=== PATIENT | male | born 1970 | race Caucasian/White ===

== ENCOUNTER 2017-01-13 19:42 | Inpatient (IN) | payer BC, OTHER ==
[~2017-01-13] VITALS: Ht 162.6 cm; Wt 74.8 kg
[2017-02-06] MEDS ORDERED: LOPERAMIDE HCL 2 MG CAPSULE PO PRN ×2 (18:45)
[2017-02-06] MEDS ORDERED: MAGNESIUM HYDROXIDE 30 ML LIQUID UDC PO PRN (18:45)
[2017-02-06] MEDS ORDERED: LORAZEPAM 2 MG/1 ML VIAL IM PRN (18:45)
[2017-02-06] MEDS ORDERED: LORAZEPAM 1 MG TABLET PO PRN ×2 (18:45)
[2017-02-06] MEDS ORDERED: DICYCLOMINE HCL 20 MG TABLET PO PRN (18:45)
[2017-02-06] MEDS ORDERED: MIRALAX 17 GM POWD.PACK PO PRN (18:45)
[2017-02-06] MEDS ORDERED: PROMETHAZINE HCL 25 MG/1 ML VIAL IM PRN (18:45)
[2017-02-06] MEDS ORDERED: CLONIDINE HCL 0.1 MG TABLET PO PRN (18:45)
[2017-02-06] MEDS ORDERED: ONDANSETRON ODT 4 MG TAB.RAPDIS SL PRN (18:45)
[2017-02-06] MEDS ORDERED: THIAMINE HCL 200 MG/2 ML VIAL IM ONE (18:45)
[2017-02-06] MEDS ORDERED: ACETAMINOPHEN 325 MG TABLET PO PRN (18:45)
[2017-02-06] MEDS ORDERED: MAG HYDROX/AL HYDROX/SIMETH 30 ML LIQUID UDC PO PRN (18:45)
[2017-02-06] MEDS ORDERED: diphenhydrAMINE 50 MG CAPSULE PO PRN (18:45)
[2017-02-06] MEDS ORDERED: LORA1TAB PO (19:59)
[2017-02-06 20:00] VITALS: BP 143/98
--- NOTE | 2017-02-06 20:00 | NUR ---
ADMISSION NOTE-- ADMITTING 46 Y/O MALE FOR ETOH DEPENDENCY.PT IS A/O X 4.PT IS 5 FEET AND 4 INCHES TALL AND WEIGHS 165 LBS.HE IS ON A REGULAR DIET,FULL CODE STATUS AND IS ALLERGIC TO ASPARAGUS,CAULIFLOWER,ALL NUTS,APPLES,ALL CITRUS FRUITS AND POTATOES.PT HAS A PMH OF ANXIETY,DEPRESSION,ANXIETY,PANIC ATTACKS,PTSD,SUICIDE ATTEMPT X 2 BY OVERDOSING ON MEDICATIONS AND ALCOHOL,ASTHMA,HYPERTENSION,HYPERCHOLESTEREMIA,COLITIS,DIVERTICULOSIS,HEPATITIS RELATED TO ALCOHOL CONSUMPTION,INSOMNIA,RENAL FAILURE X 5 AND PANCREATITIS X 5.SKIN IS INTACT,WARM AND DRY TO TOUCH.PT HAS SOME SUPERFICIAL ABRASIONS FROM SCRATCHING HIMSELF ON BILATERAL HANDS/WRISTS AND LEFT CHEEK.RESPIRATIONS ARE EVEN AND NON LABORED,ABDOMEN SOFT AND NON TENDER;B/S PRESENT X 4.NO C/O CONSTIPATION OR DIARRHEA NOTED.NO C/O N/V NOTED.PT DENIES ANY HX OF SEIZURES.PT IS EXTREMELY DEPRESSED DUE TO HIS DIVORCE WHICH HAS BEEN GOING ON FOR THE PAST 7 YEARS.PT DENIES ANY SI/HI/AH/VH AT THIS TIME.HIS CIWA SCORE IS 4 UPON ADMISSION.PT IS C/O GENERAL BODY ACHE,MILD TREMORS,NOT VISIBLE AND ANXIETY.PT IS A NON SMOKER.SMOKING CESSATION ENCOURAGED.PT RECEIVED FLU AND PNA VACCINATIONS IN 2015.PT ORIENTED TO ROOM AND UNIT.CARE PLAN AND SAFETY CHECKS INITIATED.DR MCPHERSON AND DR DISLA MADE AWARE.EDUCATION PROVIDED ON HEPATITIS C,FALL PREVENTION IN HOSPITALS,SEIZURE PRECAUTIONS AND SMOKING CESSATIONS.HX OF ALCOHOL USE FOLLOWS:-- CHOICE OF ALCOHOL - VODKA AMT. USED - ONE GALLON OR MORE ON A DAILY BASIS. LAST USED - THIS MORNING. PT HAS BEEN INTO SEVERAL DETOX AND REHAB PROGRAMS.LONGEST DETOX PERIOD WAS FOR 5 YEARS FROM 2003 TO 2008. [facility] IN 2015 FOR 3 DAYS. [facility] IN MAY 2014 FOR 30 DAYS. [facility] IN SEPTEMBER 2004 FOR 90 DAYS.
--- NOTE | 2017-02-06 20:00 | NUR ---
ADMISSION NOTE-- ADMITTING 46 Y/O MALE FOR ETOH DEPENDENCY.PT IS A/O X 4.PT IS 5 FEET AND 4 INCHES TALL AND WEIGHS 165 LBS.HE IS ON A REGULAR DIET,FULL CODE STATUS AND IS ALLERGIC TO ASPARAGUS,CAULIFLOWER,ALL NUTS,APPLES,ALL CITRUS FRUITS AND POTATOES.SKIN IS INTACT,WARM AND DRY TO TOUCH.PT HAS SOME SUPERFICIAL ABRASIONS FROM SCRATCHING HIMSELF ON BILATERAL HANDS/WRISTS AND LEFT CHEEK.RESPIRATIONS ARE EVEN AND NON LABORED Addendum: 02/07/17 at 0104 by TARAN CARRIZALES RN SAVED BY ERROR-NOT COMPLETE.
[2017-02-06 20:27] LABS: *AMPHETAMINE, URINE NEGATIVE (NEGATIVE); *BARBITURATE, URINE NEGATIVE (NEGATIVE); *CANNABINOID, URINE NEGATIVE (NEGATIVE); *COCCAINE, URINE NEGATIVE (NEGATIVE); *OPIATE, URINE NEGATIVE (NEGATIVE); *PHENCYCLIDINE SCREEN,URINE NEGATIVE (NEGATIVE)
[2017-02-06] MEDS ORDERED: MELA3TAB PO (20:36)
[2017-02-06] MEDS ORDERED: MAGN500C4 PO (20:36)
[2017-02-06] MEDS ORDERED: GLUC1CAP30 PO (20:36)
[2017-02-06] MEDS ORDERED: ALBU8.5H2 INH (20:36)
[2017-02-06] MEDS ORDERED: ASPI81TA31 PO (20:36)
[2017-02-06] MEDS ORDERED: SIMV40TA5 PO (20:36)
[2017-02-06] MEDS ORDERED: NORT25CA PO (20:36)
[2017-02-06] MEDS ORDERED: ONDA8TAB13 PO (20:36)
[2017-02-06] MEDS ORDERED: ALBU6.7H INH (20:36)
[2017-02-06] MEDS ORDERED: NAPR220T24 PO (20:36)
[2017-02-06] MEDS ORDERED: OXYM30SP3 NS (20:36)
[2017-02-06] MEDS ORDERED: FAMO40TA7 PO (20:36)
[2017-02-06] MEDS ORDERED: FOLI1TAB16 PO (20:36)
[2017-02-06] MEDS ORDERED: INOS500T PO (20:36)
[2017-02-06] MEDS ORDERED: MIRT30TA7 PO (20:36)
[2017-02-06] MEDS ORDERED: OMEP40CA37 PO (20:36)
[2017-02-06] MEDS ORDERED: CLON1PAT30 TD (20:36)
[2017-02-06] MEDS ORDERED: PERM60CR4 TP (20:36)
[2017-02-06] MEDS ORDERED: BECL8.7A6 INH (20:36)
[2017-02-06] MEDS ORDERED: VALS1TAB73 PO (20:36)
[2017-02-06] MEDS ORDERED: CARB100T5 PO (20:36)
[2017-02-06] MEDS ORDERED: TRAZ-147 PO (20:36)
[2017-02-06] MEDS ORDERED: PROM12.511 PO (20:36)
[2017-02-06] MEDS ORDERED: OMEG-11 PO (20:36)
[2017-02-06] MEDS ORDERED: CETI-231 PO (20:36)
[2017-02-06] MEDS ORDERED: SODI1TAB PO (20:36)
[2017-02-06] MEDS ORDERED: MOME17SP BNOSTRILS (20:36)
[2017-02-06] MEDS ORDERED: hydrocortisone 2.5% TP (20:36)
[2017-02-06] MEDS ORDERED: LMFO1TAB PO (20:36)
[2017-02-06] MEDS ORDERED: MOME13HF INH (20:36)
[2017-02-06] MEDS ORDERED: OMEG500C PO (20:36)
[2017-02-06] MEDS ORDERED: VITA150T PO (20:36)
[2017-02-06] MEDS ORDERED: [UNRECOGNIZED DRUG - OTHER] PO (20:36)
[2017-02-06] MEDS ORDERED: BIOT5000 PO (20:36)
[2017-02-06] MEDS ORDERED: FENO43CA5 PO (20:36)
[2017-02-06] MEDS ORDERED: BUPR300T52 PO (20:36)
[2017-02-06] MEDS ORDERED: PRAS50CA PO (20:36)
[2017-02-06] MEDS ORDERED: MONT10TA22 PO (20:36)
[2017-02-06] MEDS ORDERED: THIA100T70 PO (20:36)
[2017-02-06] MEDS ORDERED: EPIN0.3P3 IJ (20:36)
[2017-02-06] MEDS ORDERED: FLUT1BLS4 IH (20:36)
[2017-02-06] MEDS ORDERED: POTA2TAB18 PO (20:36)
[2017-02-06] MEDS ORDERED: CHLO25CA10 PO (20:36)
[2017-02-06] MEDS ORDERED: AID (20:44)
[2017-02-06] MEDS ORDERED: OLOP2.5D5 OP (20:44)
[2017-02-06] MEDS ORDERED: ASPI1TAB PO (20:44)
[2017-02-06] MEDS ORDERED: METHYL PROTECT (20:44)
[2017-02-06] MEDS ORDERED: FOLI-65 PO (20:50)
[2017-02-06] MEDS ORDERED: ASCO-382 PO (20:50)
[2017-02-06] MEDS ORDERED: GLUC1500 PO (20:50)
[2017-02-06] MEDS ORDERED: CHOL100030 PO (20:50)
[2017-02-06 21:02] LABS: BASOPHILS # (AUTO) 0.1 K/uL (0.0-0.2); BASOPHILS % (AUTO) 1.4 % (0.0-2.0); EOSINOPHILS # (AUTO) 0.2 K/uL (0.0-0.7); EOSINOPHILS % (AUTO) 4.2 % (0.0-7.0); HEMATOCRIT 43.3 % (40.0-50.0); HEMOGLOBIN 14.6 g/dL (14.0-18.0); LYMPHOCYTES # (AUTO) 1.6 K/uL (0.8-4.8); LYMPHOCYTES % (AUTO) 33.3 % (20.5-51.5); MEAN CORPUSCULAR HEMOGLOBIN 33.4 uug (27.0-31.0); MEAN CORPUSCULAR HGB CONC 34 g/dL (32.0-37.0); MEAN CORPUSCULAR VOLUME 99.4 fL (82.0-92.0); MONOCYTES # (AUTO) 0.3 K/uL (0.1-1.30); MONOCYTES % (AUTO) 6.7 % (0.0-11.0); NEUTROPHILS # (AUTO) 2.5 K/uL (1.8-8.9); NEUTROPHILS % (AUTO) 54.4 % (38.5-71.5); PLATELET COUNT (AUTO) 308 K/uL (150-450); RED BLOOD CELL COUNT(AUTO) 4.35 MIL/uL (4.70-6.10); RED CELL DISTRIBUTION WIDTH 16.1 % (11.5-14.5); WHITE BLOOD COUNT (AUTO) 4.7 K/uL (4.0-11.2)
[2017-02-06 21:20] LABS: ALBUMIN 4.5 g/dL (3.4-5.0); BILIRUBIN,TOTAL 0.5 mg/dL (0.2-1.0); CALCIUM 9.4 mg/dL (8.5-10.1); MAGNESIUM 2.2 mg/dL (1.8-2.4); TOTAL PROTEIN, SERUM 8.8 g/dL (6.4-8.2)
[2017-02-07] VITALS: BP 124/80
[2017-02-07 04:00] VITALS: BP 122/76
--- NOTE | 2017-02-07 06:47 | NUR ---
END OF SHIFT --- PT IS 46 Y/O MALE FOR ETOH DEPENDENCY.PT IS A/O X 4.HE IS ON A REGULAR DIET,FULL CODE STATUS AND IS ALLERGIC TO ASPARAGUS,CAULIFLOWER,ALL NUTS,APPLES,ALL CITRUS FRUITS AND POTATOES.NKDA.PT HAS A PMH OF ANXIETY,DEPRESSION,ANXIETY,PANIC ATTACKS,PTSD,SUICIDE ATTEMPT X 2 BY OVERDOSING ON MEDICATIONS AND ALCOHOL,ASTHMA,HYPERTENSION,HYPERCHOLESTEREMIA,COLITIS,DIVERTICULOSIS,HEPATITIS RELATED TO ALCOHOL CONSUMPTION,INSOMNIA,RENAL FAILURE X 5 AND PANCREATITIS X 5.SKIN IS INTACT,WARM AND DRY TO TOUCH.PT HAS SOME SUPERFICIAL ABRASIONS FROM SCRATCHING HIMSELF ON BILATERAL HANDS/WRISTS AND LEFT CHEEK.RESPIRATIONS ARE EVEN AND NON LABORED,ABDOMEN SOFT AND NON TENDER;B/S PRESENT X 4.NO C/O CONSTIPATION OR DIARRHEA NOTED.NO C/O N/V NOTED.PT DENIES ANY HX OF SEIZURES.PT DENIES ANY SI/HI/AH/VH AT THIS TIME.HIS CIWA SCORE IS 4 UPON ADMISSION.PLACED ON FALL AND SEIZURE PRECAUTIONS.ALL SAFETY MEASURES IN PLACE .UDS POSITIVE FOR BENZOS.ALCOHOL LEVEL ON ADMISSION WAS 398 / 0.40%.PT SLEPT ALL NIGHT WITHOUT ANY PROBLEM,SLEPT 8 HRS,FLUID INTAKE WAS 591 mls .URINE X 2 . WILL ENDORSE CARE TO DAY SHIFT.
--- NOTE | 2017-02-07 07:30 | NUR ---
Start of shift note; Received report from night nurse. Patient is a 46 y/o male admitted on 02/06/17 for ETOH dependence. Patient reported drinking Vodka 1gallon/day currently for 3 years, last drank 02/06/17. Patient is on fall and seizure precaution. Patient to start 5 day Ativan taper today. Patient reported PMH of depression, anxiety, PTSD, suicide attempt patient denies S/I at this time, asthma, HTN, hypercholesteremia, colitis, diverticulosis, hepatitis due to Alcohol consumption, Pancreatitis. Patient noted to be allergic to asparagus, nuts, cauliflower, apples, potatoes, all citrus fruits. Patient has old abrasion on arms, left cheek d/t scratching. All safety measures secured. Patient to be re-evaluated today during MD rounds. Will closely monitor patient.
[2017-02-07 08:00] VITALS: BP 127/90
[2017-02-07] MEDS: MULTIVITAMINS,THERAPEUTIC TABLET PO SCH (08:15)
[2017-02-07] MEDS: LORAZEPAM 1 MG TABLET PO SCH ×4 (08:15→21:35)
[2017-02-07] MEDS: FOLIC ACID 1 MG TABLET PO SCH (08:15)
[2017-02-07] MEDS: THIAMINE HCL 100 MG TABLET PO SCH (08:15)
--- NOTE | 2017-02-07 08:15 | NUR ---
PRN medication and taper order; Patient is complaining of nausea, no emesis noted, PRN Zofran given to prevent further nausea. 5 day Ativan started today, patient noted to be having tremors, anxiety, hot and cold flushes, bone and joint aches with current CIWA score is 12. Will closely monitor patient. Addendum: 02/07/17 at 1505 by BRITTNI RAMÍREZ LVN NO PCP reported.
[2017-02-07] MEDS ORDERED: 5 DAY TAPER OF LORAZEPAM -SERENITY PROTOCOL PO PRN (09:00)
[2017-02-07] MEDS ORDERED: TUBERCULIN,PURIF.PROT.DERIV. 5 TU/0.1 ML TEST ID ONE (09:00)
--- NOTE | 2017-02-07 09:15 | NUR ---
Re-assessment; ST[facility] [place] is effective, patient denies nausea at this time. Addendum: 02/07/17 at 0942 by BRITTNI RAMÍREZ LVN Patient's CIWA score remained 12. Will closely monitor patient. MD to evaluate patient during rounds.
[2017-02-07] MEDS ORDERED: LORAZEPAM 1 MG TABLET PO ONE (11:30)
--- NOTE | 2017-02-07 11:31 | NUR ---
New order; Patient's current CIWA score is 20, MD ordered Ativan 2mg ONE time now. Will closely monitor patient.
--- NOTE | 2017-02-07 11:55 | NUR ---
PRN medication; Patient reported 3 episodes of emesis, Phenergan 25 mg IM given on right deltoid. Will closely monitor patient.
[2017-02-07 12:00] VITALS: BP 130/88
[2017-02-07] MEDS: CETIRIZINE HCL 10 MG TABLET PO SCH (12:15)
[2017-02-07] MEDS ORDERED: PATIENT MAY USE OWN MED- MD OK INH SCH ×2 (12:15→17:00)
[2017-02-07] MEDS ORDERED: ASPIRIN/ACETAMINOPHEN/CAFFEINE TABLET PO PRN (12:15)
[2017-02-07] MEDS ORDERED: PATIENT MAY USE OWN MED- MD OK NS SCH ×2 (12:15→14:00)
--- NOTE | 2017-02-07 12:30 | NUR ---
Re-assessment; PRN medication is effective, no further emesis noted at this time, patient is still complaining of mild nausea. Patient's current CIWA at this time is 17, Ativan one time order is effective in reducing withdrawal symptoms. Will closely monitor patient.
--- NOTE | 2017-02-07 12:50 | NUR ---
IV insertion 22G IV inserted to R AC x 1 attempt. Pt tolerated well, IVF started IV protonix administered per MD order.
[2017-02-07] MEDS: PANTOPRAZOLE SODIUM 40 MG VIAL IV SCH (13:00)
[2017-02-07] MEDS: IV D5 1/2 NS 1000 ML 1,000 ML IV PRN ×2 (13:00→21:35)
--- NOTE | 2017-02-07 13:00 | NUR ---
New order; MD ordered Protonix 40mg IV and IV fluids D5% 1/2 NS 1000ml to run 120ml/hr. IV was inserted and started by charge nurse, IV site on Right AC with 22g. Will closely monitor patient.
[2017-02-07] MEDS: PATIENT MAY USE OWN MED- MD OK INH SCH ×2 (14:00→17:00)
[2017-02-07 16:00] VITALS: BP 130/94
[2017-02-07] MEDS: MIRTAZAPINE 15 MG TABLET PO SCH (17:14)
[2017-02-07] MEDS: MONTELUKAST SODIUM 10 MG TABLET PO SCH (17:14)
--- NOTE | 2017-02-07 17:15 | NUR ---
IV infiltration IV infiltrated. Dr Campbell notified. IV line removed. Pt has no complaints of pain/discomfort. Extremity elevated.
[2017-02-07] MEDS ORDERED: Medication Not On Formulary EA (Mirtazapine 1 TAB) PO SCH (18:00)
--- NOTE | 2017-02-07 18:00 | NUR ---
IV line insertion 22G IV line inserted in L AC x 4 attempts by two nurses. Pt tolerated well. No complaints at this time. Rapid blood return noted. IVF continued.
--- NOTE | 2017-02-07 18:32 | NUR ---
End of shift note; Patient is AOX4. Patient is a 46 y/o male admitted on 02/06/17 for ETOH dependence. Patient reported drinking Vodka 1gallon/day currently for 3 years, last drank 02/06/17. Patient is on fall and seizure precaution. Patient to start 5 day Ativan taper today. Patient reported PMH of depression, anxiety, PTSD, suicide attempt patient denies S/I at this time, asthma, HTN, hypercholesteremia, colitis, diverticulosis, hepatitis due to Alcohol consumption, Pancreatitis. Patient noted to be allergic to asparagus, nuts, cauliflower, apples, potatoes, all citrus fruits. Patient has old abrasion on arms, left cheek d/t scratching. Patient has IV fluids running at 120ml/HR, site is on left AC with good blood return. Right AC kept elevated, swelling slowly improving. patient denies pain at this time. Patient was able to eat his dinner 70%. Encouraged increase in fluid intake to prevent dehydration. Met all needs.
[2017-02-07 20:00] VITALS: BP 133/91
--- NOTE | 2017-02-07 20:00 | NUR ---
Start of Shift Patient is a 46 year-old, male, admitted for ETOH dependence. Pt reports drinking Vodka 1 gallon/day currently for 3 years. Pt started on a 5-day Ativan taper, 02/07/2017. Pt with PMHx of depression, anxiety, PTSD, suicide attempt patient denies S/I at this time, asthma, HTN, hypercholesteremia, colitis, diverticulosis, hepatitis due to Alcohol consumption, Pancreatitis. Patient noted to be allergic to asparagus, nuts, cauliflower, apples, bananas, potatoes, all citrus fruits. Pt on regular diet and is Full Code. Patient has old abrasion on arms, left cheek d/t scratching. WIth PRN topical Benadryl. Pt is AAOx4, no SOB nor anxiety noted.Pt is ambulatory with steady gait. Fall, universal, seizure and safety prec in place. Call light within reach. Kept pt warm, dry and comfortable. All needs met. Latest CIWA=11. Will continue to monitor pt.
[2017-02-07] MEDS: NORTRIPTYLINE HCL 25 MG CAPSULE PO SCH (21:35)
[2017-02-08] VITALS: BP 130/87
[2017-02-08 04:00] VITALS: BP 135/89
[2017-02-08] MEDS: IV D5 1/2 NS 1000 ML 1,000 ML IV PRN ×2 (05:47→15:50)
[2017-02-08] MEDS: IBUPROFEN 400 MG TABLET PO PRN ×2 (05:52→17:23)
--- NOTE | 2017-02-08 05:53 | NUR ---
RN note Motrin Pt c/o back ache=01/27. Administered Motrin 400 mg PO. No SOB noted. Will monitor and reassess.
--- NOTE | 2017-02-08 06:53 | NUR ---
RN note reassess PT verbalized relief from back pain, with pain level=1/10. No SOB noted. Will continue to monitor pt.
--- NOTE | 2017-02-08 07:10 | NUR ---
End of Shift Patient is a 46 year-old, male, admitted for ETOH dependence. Pt reports drinking Vodka 1 gallon/day currently for 3 years. Pt started on a 5-day Ativan taper, 02/07/2017. Pt with PMHx of depression, anxiety, PTSD, suicide attempt patient denies S/I at this time, asthma, HTN, hypercholesteremia, colitis, diverticulosis, hepatitis due to Alcohol consumption, Pancreatitis. Patient noted to be allergic to asparagus, nuts, cauliflower, apples, bananas, potatoes, all citrus fruits. Pt on regular diet and is Full Code. Patient has old abrasion on arms, left cheek d/t scratching. WIth PRN topical Benadryl. Pt is AAOx4, no SOB nor anxiety noted.Pt is ambulatory with steady gait. Fall, universal, seizure and safety prec in place. Call light within reach. Kept pt warm, dry and comfortable. All needs met. Latest CIWA=8, slept for 8 hours. Endorsed to AM shift nurse for continuity of care.
--- NOTE | 2017-02-08 07:34 | NUR ---
Start of shift note; Received report from night nurse. Patient is a 46 y/o male admitted on 02/06/17 for ETOH dependence. Patient reported drinking Vodka 1gallon/day currently for 3 years, last drank 02/06/17. Patient is on fall and seizure precaution. Patient to start 5 day Ativan taper today, no adverse reactions noted. Patient reported PMH of depression, anxiety, PTSD, suicide attempt patient denies S/I at this time, asthma, HTN, hypercholesteremia, colitis, diverticulosis, hepatitis due to Alcohol consumption, Pancreatitis. Patient noted to be allergic to asparagus, nuts, cauliflower, apples, potatoes, all citrus fruits. Patient has old abrasion on arms, left cheek d/t scratching with PRN skin treatment of hydrocortisone lotion. All safety measures secured. Patient has IV fluids running 120ml/hr on left AC for hydration. Patient slept for 8 hours. Will closely monitor patient.
[2017-02-08 07:59] LABS: BASOPHILS # (AUTO) 0.1 K/uL (0.0-0.2); BASOPHILS % (AUTO) 0.9 % (0.0-2.0); EOSINOPHILS # (AUTO) 0.2 K/uL (0.0-0.7); EOSINOPHILS % (AUTO) 3.3 % (0.0-7.0); HEMOGLOBIN 12.7 g/dL (14.0-18.0); LYMPHOCYTES % (AUTO) 14.8 % (20.5-51.5); MEAN CORPUSCULAR HEMOGLOBIN 33.1 uug (27.0-31.0); MEAN CORPUSCULAR HGB CONC 33 g/dL (32.0-37.0); MEAN CORPUSCULAR VOLUME 98.9 fL (82.0-92.0); MONOCYTES # (AUTO) 0.4 K/uL (0.1-1.30); MONOCYTES % (AUTO) 6.2 % (0.0-11.0); NEUTROPHILS % (AUTO) 74.8 % (38.5-71.5); PLATELET COUNT (AUTO) 218 K/uL (150-450); RED BLOOD CELL COUNT(AUTO) 3.85 MIL/uL (4.70-6.10); RED CELL DISTRIBUTION WIDTH 14.7 % (11.5-14.5); WHITE BLOOD COUNT (AUTO) 6.7 K/uL (4.0-11.2)
[2017-02-08 08:00] VITALS: BP 165/107
[2017-02-08] MEDS: CHOLECALCIFEROL 1,000 UNIT TABLET PO SCH (08:06)
[2017-02-08] MEDS: buPROPion XL 150 MG TAB.SR.24H PO SCH (08:06)
[2017-02-08] MEDS: FOLIC ACID 1 MG TABLET PO SCH (08:06)
[2017-02-08] MEDS: THIAMINE HCL 100 MG TABLET PO SCH (08:07)
[2017-02-08] MEDS: LORAZEPAM 1 MG TABLET PO SCH ×3 (08:07→21:00)
[2017-02-08] MEDS: ASPIRIN 81 MG TAB.CHEW PO SCH (08:07)
[2017-02-08] MEDS: HCTZ PO SCH (08:07)
[2017-02-08] MEDS: VALSARTAN PO SCH (08:07)
[2017-02-08] MEDS: MULTIVITAMINS,THERAPEUTIC TABLET PO SCH (08:07)
--- NOTE | 2017-02-08 08:07 | NUR ---
PRN medications; PRN Clonidine 0.1mg given for high BP 165/107, HR 83. Patient has history of HTN. PRN Hytone 2.5% also given for pruritus and applied to affected areas. Will closely monitor patient.
[2017-02-08] MEDS: PANTOPRAZOLE SODIUM 40 MG VIAL IV SCH (08:09)
[2017-02-08] MEDS: CETIRIZINE HCL 10 MG TABLET PO SCH (08:13)
[2017-02-08] MEDS: HYDROCORTISONE 2.5% LOTION 59 ML BOTTLE TP PRN (08:13)
[2017-02-08] MEDS: PATIENT MAY USE OWN MED- MD OK INH SCH ×3 (08:19→17:15)
[2017-02-08 08:23] LABS: THYROID STIMULATING HORMONE 1.799 mIU/mL (0.358-3.740)
[2017-02-08 08:38] LABS: ALBUMIN 3.5 g/dL (3.4-5.0); BILIRUBIN,DIRECT 0.2 mg/dL (0.0-0.2); CALCIUM 8.8 mg/dL (8.5-10.1); CREATININE 0.9 mg/dL (0.6-1.3); MAGNESIUM 1.6 mg/dL (1.8-2.4); PHOSPHOROUS 3.5 mg/dL (2.5-4.9); TOTAL PROTEIN, SERUM 7.1 g/dL (6.4-8.2)
[2017-02-08 08:40] LABS: POTASSIUM 2.8 mmol/L (3.5-5.1)
--- NOTE | 2017-02-08 09:07 | NUR ---
Re-assessment; Patient is AOX4. Clonidine PRN is effective, BP of 132/82 noted, HR of 82. PRN Hytone is effective per patient. Will closely monitor patient.
--- NOTE | 2017-02-08 09:50 | NUR ---
MD communication; MD notified regarding Potassium level 2.8 and Magnesium 1.6. MD ordered Kdur 40meq one time now and 20meq at 1500, mag-ox 800mg one time order. Order carried out and given. Will continue to monitor patient.
[2017-02-08] MEDS ORDERED: MAGNESIUM OXIDE 400 MG TABLET PO ONE (10:00)
[2017-02-08] MEDS ORDERED: POTASSIUM CHLORIDE 20 MEQ TAB.PRT.SR PO ONE ×2 (10:00→15:00)
[2017-02-08 12:42] VITALS: BP 169/112
--- NOTE | 2017-02-08 12:45 | NUR ---
MD communication Notified Dr Campbell that pt's BP is 169/112, HR of 75. MD to place orders as needed.
[2017-02-08] MEDS ORDERED: AMLODIPINE 5 MG TABLET PO SCH (13:00)
--- NOTE | 2017-02-08 13:06 | NUR ---
MD order; MD ordered Norvasc 5mg PO daily and Catapres 0.1mg TID PO for BP maintenance. MD was notified of patient's current BP 169/112, HR 77. Will closely to monitor patient. MD also increased IV D5% 1/2 NS rate to 125ml/hr. Orders carried out and given. IV site remained patent and intact and secured. No infiltration noted, no swelling/infiltration noted on previous IV site (Right AC). Will closely monitor patient.
--- NOTE | 2017-02-08 14:06 | NUR ---
Re-assessment; [facility] BP medication is effective, BP of 130/88 noted, will continue to monitor patient.
[2017-02-08] MEDS: CLONIDINE HCL 0.1 MG TABLET PO SCH ×2 (14:21→21:00)
[2017-02-08 15:35] LABS: HCV AB <0.1 s/co ratio (0.0-0.9); HEPATITIS B CORE AB, IgM Negative (Negative); HEPATITIS B SURFACE AG Negative (Negative)
[2017-02-08 16:00] VITALS: BP 148/96
[2017-02-08] MEDS: MIRTAZAPINE 15 MG TABLET PO SCH (17:15)
[2017-02-08] MEDS: MONTELUKAST SODIUM 10 MG TABLET PO SCH (17:15)
--- NOTE | 2017-02-08 17:23 | NUR ---
PRN medication; Patient is complaining of left shoulder pain rated 7/10, Ibuprofen 400mg given for pain. Will continue to monitor patient.
--- NOTE | 2017-02-08 18:17 | NUR ---
End of shift note; Patient is AOX4. Patient is a 46 y/o male admitted on 02/06/17 for ETOH dependence. Patient reported drinking Vodka 1gallon/day currently for 3 years, last drank 02/06/17. Patient is on fall and seizure precaution. Patient to start 5 day Ativan taper today. Patient reported PMH of depression, anxiety, PTSD, suicide attempt patient denies S/I at this time, asthma, HTN, hypercholesteremia, colitis, diverticulosis, hepatitis due to Alcohol consumption, Pancreatitis. Patient noted to be allergic to asparagus, nuts, cauliflower, apples, potatoes, all citrus fruits. Patient has old abrasion on arms, left cheek d/t scratching. Patient has IV fluids running at 125ml/HR, site is on left AC with good blood return, no infiltration noted. patient denies pain at this time. Encouraged increase in fluid intake to prevent dehydration. Patient remained compliant with treatment plan. Met all needs.
--- NOTE | 2017-02-08 18:23 | NUR ---
Re-assessment; Patient is calm and comfortable, resting with eyes closed, respirations even and unlabored. No S/S of pain at this time.
[2017-02-08 20:00] VITALS: BP 170/105
--- NOTE | 2017-02-08 20:00 | NUR ---
START OF SHIFT NOTE: REPORT RECEIVED FROM DAY SHIFT NURSE. PT IS A 46 YO MALE ADMITTED ON 02/06/17 FOR ETOH DEPENDENCE AND WITHDRAWAL. PT REPORTS DRINKING 1 GALLON VODKA DAILY FOR 3 YEARS. PT IS ON DAY 2 OF A 5-DAY ATIVAN TAPER. PT RECEIVED WITH LAST DAY SHIFT CIWA=17 PT IS A FULL CODE. PT HAS SCATTERED SUPERFICIAL ABRASIONS D/T SCRATCHING. VTE SCORE 1. PT IS ON A REGULAR DIET. PT REPORTS ALLERGY TO CITRUS, APPLE, ASPARAGUS, BANANA, CAULIFLOWER, NUTS, POTATO. PT REPORTS A PSYCH HX OF DEPRESSION, ANXIETY, PTSD, SUICIDE ATTEMPT X2. PT REPORTS PMHX OF ASTHMA, HTN, HYPERLIPIDEMIA, COLITIS, DIVERTICULOSIS, ALCOHOLIC HEPATITIS, RENAL FAILURE X5, PANCREATITIS X5. PT HAS 22G IN LEFT AC RUNNING D5 1/2NS AT 125MLS/HR. PT IS A&OX4 AND AMBULATORY WITH STEADY GAIT. BOWEL SOUNDS PRESENT IN ALL QUADRANTS. LUNGS CTA THROUGHOUT. VS AT START OF SHIFT ASSESSMENT: 98.0, 100, 16, 96%, 170/105. WITHDRAWAL SYMPTOMS NOTED/REPORTED: ANXIETY, DIAPHORESIS, INCREASED HR. CIWA IS 3. BED IS IN LOW POSITION AND LOCKED, SIDE RAILS UP X2, CALL LIGHT WITHIN REACH. ALL NEEDS ATTENDED AND MET. WILL CONTINUE TO MONITOR.
[2017-02-08] MEDS: NORTRIPTYLINE HCL 25 MG CAPSULE PO SCH (21:00)
[2017-02-08] MEDS ORDERED: AMLODIPINE 5 MG TABLET PO ONE (21:00)
[2017-02-08] MEDS: TRAZODONE 100 MG TABLET PO PRN (21:00)
[2017-02-08] MEDS: ALBUTEROL INHALER IH PRN (21:01)
[2017-02-08] MEDS: HYDROXYZINE PAMOATE 25 MG CAPSULE PO PRN (21:01)
--- NOTE | 2017-02-08 21:01 | NUR ---
PRN'S ALBUTEROL, TRAZODONE, VISTARIL: PT VERBALIZES SOB, REQUESTS ALBUTEROL INHALER. PT SELF-ADMINISTERED 1 PUFF ALBUTEROL ORDERED. PT C/O INABILITY TO SLEEP. ADMINISTERED PRN TRAZODONE ORDERED. PT C/O INCREASED ANXIETY. ADMINISTERED PRN VISTARIL ORDERED. WILL CONTINUE TO MONITOR.
--- NOTE | 2017-02-08 22:00 | NUR ---
REASSESSMENT: PT IS IN BED WITH EYES CLOSED. RESPIRATIONS ARE EVEN AND UNLABORED. NO S/S OF ACUTE DISTRESS NOTED. PRN'S ALBUTEROL, TRAZODONE, AND VISTARIL EFFECTIVE. WILL CONTINUE TO MONITOR.
--- NOTE | 2017-02-09 | NUR ---
VITALS/CIWA REFUSED: PT REFUSES VITALS AND CIWA ASSESSMENTS FOR SLEEP. PT EDUCATED ON RISKS/BENEFITS. ALL SAFETY PRECAUTIONS ARE IN PLACE. WILL CONTINUE TO MONITOR. Addendum: 02/09/17 at 0558 by BRENDAN LANGLEY RN Amended: Links added.
[2017-02-09] MEDS: IV D5 1/2 NS 1000 ML 1,000 ML IV PRN (01:11)
--- NOTE | 2017-02-09 04:00 | NUR ---
VITALS AND CIWA REFUSED: PT REFUSES 04:00 VITALS AND CIWA ASSESSMENTS FOR SLEEP. PT EDUCATED ON RISKS/BENEFITS. ALL SAFETY PRECAUTIONS ARE IN PLACE. WILL CONTINUE TO MONITOR. Addendum: 02/09/17 at 0558 by BRENDAN LANGLEY RN Amended: Links added.
--- NOTE | 2017-02-09 05:45 | NUR ---
PRN ALBUTEROL: PT REPORTS SOB. PT SELF-ADMINISTERED ALBUTEROL INHALER ORDERED. WILL CONTINUE TO MONITOR.
[2017-02-09] MEDS: ALBUTEROL INHALER IH PRN ×2 (05:49→21:28)
--- NOTE | 2017-02-09 06:45 | NUR ---
REASSESSMENT: PT IS IN BED WITH EYES CLOSED. RESPIRATIONS ARE EVEN AND UNLABORED. NO S/S OF ACUTE DISTRESS NOTED. PRN ALBUTEROL EFFECTIVE. WILL CONTINUE TO MONITOR.
--- NOTE | 2017-02-09 07:19 | NUR ---
END OF SHIFT NOTE: PT IS A 46 YO MALE ADMITTED TO [facility] ON 02/06/17 FOR MEDICALLY SUPERVISED WITHDRAWAL FROM ETOH. PT REPORTS DRINKING A GALLON OF VODKA DAILY FOR 3 YEARS. PT IS TO START DAY 3 OF A 5-DAY ATIVAN TAPER. PT IS A FULL CODE. PT HAS SCATTERED SUPERFICIAL ABRASIONS D/T SCRATCHING. VTE SCORE 1. PT IS ON A REGULAR DIET. PT REPORTS ALLERGY TO CITRUS, APPLE, ASPARAGUS, BANANA, CAULIFLOWER, NUTS, AND POTATO. PT REPORTS A PSYCH HX OF DEPRESSION, ANXIETY, PTSD, SUICIDE ATTEMPT X2. PT REPORTS PMHX OF ASTHMA, HTN, HYPERLIPIDEMIA, COLITIS, DIVERTICULOSIS, ALCOHOLIC HEPATITIS, RENAL FAILURE X5, PANCREATITIS X5. PT REMAINED A&OX4 DURING SHIFT WITH VSS; HR HIGH AT 100 AND BP AT 170/105. LAST CIWA=3 AT 20:00. SCHEDULED MEDICATION REGIME EFFECTIVELY MANAGED S/S OF WITHDRAWAL, IN ADDITION TO PRN VISTARIL FOR ANXIETY. PRN TRAZODONE WAS GIVEN FOR INSOMNIA, AND PRN VENTOLIN FOR SOB. PT HAS 22G IN LEFT AC RUNNING D5 1/2NS AT 125MLS/HR. TOTAL FLUID INTAKE THIS SHIFT: 1500 ML ORAL, 1000ML IV; TOTAL OUTPUT: URINE X 2, BM X 0. PT IS CURRENTLY IN BED AND SLEPT FOR 7 HOURS. BED IS IN LOW POSITION AND LOCKED, SIDE RAILS UP X2, CALL LIGHT WITHIN REACH. ALL NEEDS ATTENDED AND MET. PT ENDORSED TO DAY SHIFT NURSE.
[2017-02-09 07:52] LABS: CALCIUM 9.2 mg/dL (8.5-10.1); CREATININE 0.9 mg/dL (0.6-1.3)
[2017-02-09 08:00] VITALS: BP 132/96
--- NOTE | 2017-02-09 08:00 | NUR ---
Start of shift: Received pt a/o x4 laying in bed. Pt has LAC IV site with D51/2 NS @ 125/hr. IV site intact and patent with no discomfort noted. Pt presents with depressed mood and blunted affect. Pt denies S/I and H/I. Pt appears very disheveled and odorous. Encouraged patient to shower this AM. States he is eating fair and drinking fluids and tolerating well. Encouraged group attendance to improve coping skills and prevent relapse. Will medicate as ordered and continue to manage S/S of W/D.
[2017-02-09] MEDS ORDERED: AMLODIPINE 5 MG TABLET PO SCH (09:00)
[2017-02-09] MEDS: CETIRIZINE HCL 10 MG TABLET PO SCH (09:03)
[2017-02-09] MEDS: MULTIVITAMINS,THERAPEUTIC TABLET PO SCH (09:03)
[2017-02-09] MEDS: ASPIRIN 81 MG TAB.CHEW PO SCH (09:03)
[2017-02-09] MEDS: THIAMINE HCL 100 MG TABLET PO SCH (09:03)
[2017-02-09] MEDS: buPROPion XL 150 MG TAB.SR.24H PO SCH (09:03)
[2017-02-09] MEDS: LORAZEPAM 1 MG TABLET PO SCH ×4 (09:04→21:25)
[2017-02-09] MEDS: AMLODIPINE 10 MG TABLET PO SCH (09:04)
[2017-02-09] MEDS: CHOLECALCIFEROL 1,000 UNIT TABLET PO SCH (09:04)
[2017-02-09] MEDS: FOLIC ACID 1 MG TABLET PO SCH (09:04)
[2017-02-09] MEDS: CLONIDINE HCL 0.1 MG TABLET PO SCH ×3 (09:04→21:25)
[2017-02-09] MEDS: PANTOPRAZOLE SODIUM 40 MG VIAL IV SCH (09:05)
[2017-02-09] MEDS: PATIENT MAY USE OWN MED- MD OK INH SCH ×3 (09:06→17:10)
[2017-02-09] MEDS: HCTZ PO SCH (09:11)
[2017-02-09] MEDS: VALSARTAN PO SCH (09:11)
[2017-02-09] MEDS ORDERED: POTASSIUM CHLORIDE 20 MEQ TAB.PRT.SR PO ONE (10:00)
--- NOTE | 2017-02-09 10:52 | NUR ---
IV DISCONTINUED PER .
[2017-02-09 12:00] VITALS: BP 161/68
[2017-02-09 16:00] VITALS: BP 142/100
[2017-02-09] MEDS ORDERED: POTASSIUM CHLORIDE 10 MEQ CAPSULE.SA PO ONE (17:00)
[2017-02-09] MEDS: MONTELUKAST SODIUM 10 MG TABLET PO SCH (18:03)
[2017-02-09] MEDS: MIRTAZAPINE 15 MG TABLET PO SCH (18:04)
--- NOTE | 2017-02-09 18:21 | NUR ---
END OF SHIFT: PT CONTINUES ON ATIVAN TAPER. LAST CIWA 1. PT APPEARED DEPRESSED AND ANXIOUS THIS AM. PT PRESENTED THIS AM DISHEVELED AND DIAPHORETIC. PT STATES THE DAY PROGRESSED HE FELT BETTER. PT SHOWERED AND ATTENDED A GROUP BUT VERY LITTLE INTERACTION WITH PEERS AND ISOLATED IN ROOM MOST OF SHIFT. IV SITE AND FLUIDS DC'D. PT IS EATING WELL AND INCREASED FLUIDS ENCOURAGED. TOLERATING WELL. BP WAS LABILE. CLONIDINE SCHEDULED AND EFFECTIVE. NO PRNS REQUIRED. PT STATES DETOX MEDS ARE EFFECTIVE. SAFETY MEASURES IN PLACE. CALL MURRAY IN REACH. WILL PASS SHIFT REPORT TO ONCOMING NURSE.
[2017-02-09 20:00] VITALS: BP 126/88
--- NOTE | 2017-02-09 20:00 | NUR ---
START OF SHIFT NOTE: REPORT RECEIVED FROM DAY SHIFT NURSE. PT IS A 46 YO MALE ADMITTED ON 02/06/17 FOR ETOH WITHDRAWAL. PT REPORTS DRINKING ONE GALLON OF VODKA/DAY FOR 3 YEARS. PT IS ON DAY 3 OF A 5-DAY ATIVAN TAPER. PT RECEIVED WITH LAST DAY SHIFT CIWA=1. PT IS A FULL CODE. PT REPORTS ALLERGY TO CITRUS, APPLE, ASPARAGUS, BANANA, CAULIFLOWER, NUTS, AND POTATO. PT HAS SCATTERED SUPERFICIAL ABRASIONS D/T SCRATCHING. VTE SCORE 1. PT IS ON A REGULAR DIET. PT REPORTS A PSYCH HX OF DEPRESSION, ANXIETY, PTSD, SUICIDE ATTEMPT X2. PT REPORTS PMHX OF ASTHMA, HTN, HYPERLIPIDEMIA, COLITIS, DIVERTICULOSIS, ALCOHOLIC HEPATITIS, RENAL FAILURE X5, PANCREATITIS X5. PT IS A&OX4 AND AMBULATORY WITH STEADY GAIT. BOWEL SOUNDS PRESENT IN ALL QUADRANTS. LUNGS CTA THROUGHOUT WITH WHEEZES. VS AT START OF SHIFT ASSESSMENT: 98.3, 84, 16, 92%, 126/88. WITHDRAWAL SYMPTOMS NOTED/REPORTED: ANXIETY, DIAPHORESIS, AGITATION. CIWA IS 6. BED IS IN LOW POSITION AND LOCKED, SIDE RAILS UP X2, CALL LIGHT WITHIN REACH. ALL NEEDS ATTENDED AND MET. WILL CONTINUE TO MONITOR.
[2017-02-09] MEDS: TRAZODONE 100 MG TABLET PO PRN (21:25)
[2017-02-09] MEDS: HYDROXYZINE PAMOATE 25 MG CAPSULE PO PRN (21:26)
[2017-02-09] MEDS: NORTRIPTYLINE HCL 25 MG CAPSULE PO SCH (21:27)
--- NOTE | 2017-02-09 21:28 | NUR ---
PRN'S ALBUTEROL, VISTARIL, TRAZODONE PT REPORTS SOB. SPO2 AT 92%. PT SELF-ADMINISTERED 1 PUFF ALBUTEROL ORDERED. PT C/O INCREASED ANXIETY. ADMINISTERED PRN VISTARIL ORDERED. PT C/O INABILITY TO SLEEP. ADMINISTERED PRN TRAZODONE ORDERED. WILL CONTINUE TO MONITOR.
--- NOTE | 2017-02-09 22:00 | NUR ---
REASSESSMENT AND MD COMMUNICATION: SPO2 ON RA AFTER PRN ALBUTEROL REMAINS AT 91-92%. DR SCRUGGS CONTACTED AND MD INPUT ORDER FOR NEBULIZER/BREATHING TREATMENTS. RT CONTACTED FOR ADMINISTRATION.
[2017-02-09] MEDS ORDERED: ALBUTEROL SULFATE 2.5 MG/ 0.5 ML NEBU NEB PRN (22:15)
--- NOTE | 2017-02-09 22:30 | NUR ---
REASSESSMENT: SPO2 REMAINS AT 92% AFTER NEBULIZER/BREATHING TREATMENT. PT PLACED ON ORDERED O2 AT 2L VIA NASAL CANULA. SPO2 INCREASED TO 95% PT REPORTS THAT PRN VISTARIL AND PRN TRAZODONE HAVE RELIEVED ANXIETY AND PT STATES THAT HE THINKS HE WILL BE ABLE TO SLEEP. PRN'S VISTARIL AND TRAZODONE EFFECTIVE.
[2017-02-09] MEDS: IPRATROPIUM BROMIDE 0.5 MG/2.5 ML NEBU NEB PRN (22:31)
[2017-02-09] MEDS ORDERED: IPRATROPIUM BROMIDE 0.5 MG/2.5 ML NEBU ONE (22:38)
[2017-02-09] MEDS ORDERED: ALBUTEROL SULFATE 2.5 MG/3 ML NEBU ONE (22:38)
[2017-02-10] VITALS: BP 125/85
[2017-02-10 04:00] VITALS: BP 121/85
[2017-02-10] MEDS: HYDROCORTISONE 2.5% LOTION 59 ML BOTTLE TP PRN (04:12)
--- NOTE | 2017-02-10 04:12 | NUR ---
PRN HYTONE: PT REPORTS PRURITIS. PRN HYTONE APPLIED TO AFFECTED AREAS BY PT.
--- NOTE | 2017-02-10 05:14 | NUR ---
REASSESSMENT: PT IS IN BED WITH EYES CLOSED. RESPIRATIONS ARE EVEN AND UNLABORED. NO S/S OF ACUTE DISTRESS NOTED. PRN HYTONE EFFECTIVE. WILL CONTINUE TO MONITOR.
[2017-02-10] MEDS ORDERED: ALBUTEROL SULFATE 2.5 MG/3 ML NEBU NEB PRN (07:00)
--- NOTE | 2017-02-10 07:06 | NUR ---
END OF SHIFT NOTE: PT IS A 46 YO MALE ADMITTED ON 02/06/17 FOR MEDICALLY SUPERVISED WITHDRAWAL FROM ETOH. PT REPORTS DRINKING ONE GALLON OF VODKA DAILY FOR 3 YEARS. PT IS TO START DAY 4 OF A 5-DAY ATIVAN TAPER. PT IS A FULL CODE. PT IS ON A REGULAR DIET. PT REPORTS ALLERGY TO CITRUS, APPLE, ASPARAGUS, BANANA, CAULIFLOWER, NUTS, AND POTATO. PT HAS SCATTERED SUPERFICIAL ABRASIONS D/T SCRATCHING; PRN HYTONE ORDERED FOR PRURITIS. VTE SCORE 1. PT REPORTS A PSYCH HX OF DEPRESSION, ANXIETY, PTSD, SUICIDE ATTEMPT X2. PT REPORTS PMHX OF ASTHMA, HTN, HYPERLIPIDEMIA, COLITIS, DIVERTICULOSIS, ALCOHOLIC HEPATITIS, RENAL FAILURE X5, AND PANCREATITIS X5. PT REMAINED A&OX4 DURING SHIFT WITH VSS; SPO2 LOW AT 92% AND NEW ORDER FOR ATROVENT AND VENTOLIN NEBULIZER RECEIVED. SPO2 REMAINED AT 92% AFTER NEB TREATMENT AND PT PLACED ON ORDERED O2 AT 2L VIA NASAL CANULA. LAST CIWA=1 AT 04:00. SCHEDULED MEDICATION REGIME EFFECTIVELY MANAGED S/S OF WITHDRAWAL, IN ADDITION TO PRN VISTARIL FOR ANXIETY. PRN TRAZODONE WAS GIVEN FOR INSOMNIA, AND PRN VENTOLIN INH FOR SOB. PRN HYTONE ADMINISTERED FOR PRURITIS. TOTAL FLUID INTAKE THIS SHIFT: 855 ML; TOTAL OUTPUT: URINE X 2, BM X 0. PT IS CURRENTLY IN BED AND SLEPT FOR 5 HOURS. BED IS IN LOW POSITION AND LOCKED, SIDE RAILS UP X2, CALL LIGHT WITHIN REACH. ALL NEEDS ATTENDED AND MET. PT ENDORSED TO DAY SHIFT NURSE.
[2017-02-10] MEDS: PANTOPRAZOLE SODIUM 40 MG TABLET.DR PO SCH (07:23)
--- NOTE | 2017-02-10 07:53 | NUR ---
START OF SHIFT: RECEIVED PT LAYING IN BED THIS AM. PT STATES HE SLEPT SOME, BUT HAD A BAD NIGHT LAST NIGHT WITH C/O ABD PAIN, ARM PAIN, AND TROUBLE SLEEPING LAST NIGHT. PT ON 2 L O2 DURING THE NIGHT PER ASSEMBLY LINE WORKER NURSE. PT SLEPT 5 HOURS LAST NIGHT AFTER GIVEN TRAZODONE AND VISTARIL BY ASSEMBLY LINE WORKER NURSE. CIWA 4 THIS AM. WILL ENCOURAGE PT TO ATTEND GROUPS TO MANAGE COPING SKILLS AND PREVENT RELAPSE. WILL CONTINUE MONITORING S/S OF W/D AND PROVIDE SAFE AND SUPPORTIVE ENVIRONMENT WITH CALL MURRAY IN REACH AND BED IN LOWEST POSITION.
[2017-02-10 08:00] VITALS: BP 125/88
[2017-02-10] MEDS: THIAMINE HCL 100 MG TABLET PO SCH (08:52)
[2017-02-10] MEDS: CETIRIZINE HCL 10 MG TABLET PO SCH (08:52)
[2017-02-10] MEDS: CHOLECALCIFEROL 1,000 UNIT TABLET PO SCH (08:52)
[2017-02-10] MEDS: buPROPion XL 150 MG TAB.SR.24H PO SCH (08:52)
[2017-02-10] MEDS: AMLODIPINE 10 MG TABLET PO SCH (08:52)
[2017-02-10] MEDS: ASPIRIN 81 MG TAB.CHEW PO SCH (08:53)
[2017-02-10] MEDS: MULTIVITAMINS,THERAPEUTIC TABLET PO SCH (08:53)
[2017-02-10] MEDS: FOLIC ACID 1 MG TABLET PO SCH (08:53)
[2017-02-10] MEDS: CLONIDINE HCL 0.1 MG TABLET PO SCH ×3 (08:53→22:00)
[2017-02-10] MEDS: LORAZEPAM 1 MG TABLET PO SCH ×3 (08:53→22:00)
[2017-02-10] MEDS: PATIENT MAY USE OWN MED- MD OK INH SCH ×3 (08:56→17:41)
[2017-02-10] MEDS: VALSARTAN PO SCH (08:56)
[2017-02-10] MEDS: HCTZ PO SCH (08:56)
[2017-02-10 12:00] VITALS: BP 132/88
--- NOTE | 2017-02-10 12:43 | NUR ---
CIWA DEFERRED. PT SLEEPING RESPIRATIONS EVEN AND UNLABORED. BED LOCKED AND IN LOWEST POSITION. CALL MURRAY IN REACH
[2017-02-10 16:00] VITALS: BP 133/82
--- NOTE | 2017-02-10 17:37 | NUR ---
1500 MEDS HELD PT IS ASLEEP.RESP EVEN AND UNLABORED. SAFETY MEASURES IN PLACE
[2017-02-10] MEDS: MONTELUKAST SODIUM 10 MG TABLET PO SCH (18:24)
--- NOTE | 2017-02-10 18:54 | NUR ---
END OF SHIFT: PT CONTINUES ATIVAN TAPER. LAST CIWA 0. PT O2 SATS REMAINED STABLE AT 96-98% DURING THIS SHIFT WITH OUT USE OF O2. PT CONTINUES TO PRESENT WITHDRAWN AND REPORTS DEPRESSION.PT DENIES S/I AND H/I. PT C/O FATIGUE TODAY AND ISOLATED IN HIS ROOM SLEEPING. MEDS HELD AT 1500 DUE TO PT BEING ASLEEP. NO PRN MEDS GIVEN TODAY PT STATES DETOX MEDS ARE EFFECTIVE. PT REMAINS IN BED WITH BED IN LOWEST POSITION AND CALL MURRAY IN REACH. WILL PASS REPORT TO ONCOMING NURSE.
[2017-02-10 20:00] VITALS: BP 133/82
--- NOTE | 2017-02-10 20:00 | NUR ---
START OF SHIFT Received report from day shift nurse. Pt attended a group meeting and returned to his room after. He is a 46 yo male admitted to [facility] on 02/06 for ETOH dependence. He is A&O x4 and ambulatory. Allergies to citrus, apples, asparagus, banana, cauliflower, nuts and potato. He has a PMH of asthma, HTN, hypercholesteremia, colitis, diverticulosis, alcoholic hepatitis, renal failure x5, pancreatitis x5, depression, anxiety, and suicide attempt x2. Pt denies SI/HI. He started a 5 day Ativan taper on 02/07. Lung sounds are clear. He reports feeling anxious with tremors that can be felt. He has been compliant with treatment. Fall and seizure precautions in place. Bed is down with call light in reach.
[2017-02-10] MEDS ORDERED: MIRTAZAPINE 15 MG TABLET PO SCH (21:00)
[2017-02-10] MEDS: NORTRIPTYLINE HCL 25 MG CAPSULE PO SCH (22:00)
[2017-02-11] VITALS: BP 144/96
[2017-02-11] MEDS: TRAZODONE 100 MG TABLET PO PRN (00:40)
--- NOTE | 2017-02-11 00:42 | NUR ---
PRN Trazodone administration Pt reports he is unable to fall sleep. Encouraged relaxation. PRN Trazodone administered.
--- NOTE | 2017-02-11 02:00 | NUR ---
PRN Trazodone reassessment PRN Trazodone somewhat effective. Pt appears drowsy and reports that he has been sleeping "on and off" since receiving Trazodone.
[2017-02-11] MEDS: IPRATROPIUM BROMIDE 0.5 MG/2.5 ML NEBU NEB PRN ×2 (02:53→22:44)
[2017-02-11] MEDS: ALBUTEROL SULFATE 2.5 MG/3 ML NEBU NEB PRN ×2 (02:53→22:44)
--- NOTE | 2017-02-11 02:53 | NUR ---
PRN Milk of Magnesia Pt reports feeling constipated with stomach cramping. Pt describes two small bowel movements yesterday that were like "pellets". Bowel sounds present in all 4 quadrants. PRN Milk of Magnesia administered. Encouraged fluids.
--- NOTE | 2017-02-11 02:56 | NUR ---
PRN Breathing Treatment Pt c/o mild SOB. O2 sat 96% on Oxygen 2LPM via nasal cannula. Lung sounds clear. RT contacted for breathing treatment.
--- NOTE | 2017-02-11 07:20 | NUR ---
END OF SHIFT Report provided to day shift nurse. Pt is lying in bed resting. He is a 46 yo male admitted to [facility] on 02/06 for ETOH dependence. He is A&O x4 and ambulatory. Allergies to citrus, apples, asparagus, banana, cauliflower, nuts and potato. He has a PMH of asthma, HTN, hypercholesteremia, colitis, diverticulosis, alcoholic hepatitis, renal failure x5, pancreatitis x5, depression, anxiety, and suicide attempt x2. Pt denies SI/HI. He started a 5 day Ativan taper on 02/07. At 0000 pt was placed on Oxygen 2LPM via nasal cannula for O2 sat of 93% and it increased to 97%. Pt was drowsy but unable to sleep at this time. Breathing treatment administered for c/o mild SOB at 0253 and was effective. Pt reports that prior to 0400 he was only sleeping "for a few minutes on and off". At 0400 pt was observed to be sleeping with periods of apnea. No s/s of distress. O2 sat 92% on 2LPM via nasal cannula. Increased Oxygen to 3LPM and O2 sat increased to 96%. PRN Trazodone and Milk of Magnesia administered. Last CIWA was 2. He drank 1000mL and slept for 5 hours. Fall and seizure precautions in place. Bed is down with call light in reach.
--- NOTE | 2017-02-11 07:21 | NUR ---
Start of Shift Notes: Received patient in his room. Awake, alert and verbally responsive. Able to make his needs known. Respirations even and unlabored. No complains of SOB noted. Skin warm and dry to touch. Abdomen soft and non-distended. No complains of N/V/D or constipation noted. Bladder non-distended. No complains of dysuria. Ambulatory ad bethel with steady gait. Patient is a 46 year old male admitted for ETOH dependence who was placed on a 5-day Ativan taper as ordered. No adverse reactions noted. Patient is tolerating taper well. 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 FULL CODE. Regular diet. Allergic to asparagus, nuts, cauliflowers, potatoes, banana and citrus fruits. Educated patient with his current plan of care for the day and his medication regimen. Encouraged oral fluid intake and encouraged group participation to learn new skills to prevent relapse. Will continue to monitor closely.
[2017-02-11 07:30] LABS: FOLIC ACID 18.3 NG/ML (8.6-58.9)
[2017-02-11] MEDS: PANTOPRAZOLE SODIUM 40 MG TABLET.DR PO SCH (07:33)
[2017-02-11 07:40] LABS: CALCIUM 9.2 mg/dL (8.5-10.1); POTASSIUM 3.3 mmol/L (3.5-5.1)
[2017-02-11 08:00] VITALS: BP 126/86
[2017-02-11] MEDS: AMLODIPINE 10 MG TABLET PO SCH (09:56)
[2017-02-11] MEDS: MULTIVITAMINS,THERAPEUTIC TABLET PO SCH (09:56)
[2017-02-11] MEDS: CHOLECALCIFEROL 1,000 UNIT TABLET PO SCH (09:56)
[2017-02-11] MEDS: buPROPion XL 150 MG TAB.SR.24H PO SCH (09:56)
[2017-02-11] MEDS: ASPIRIN 81 MG TAB.CHEW PO SCH (09:56)
[2017-02-11] MEDS: PATIENT MAY USE OWN MED- MD OK INH SCH ×3 (09:57→17:11)
[2017-02-11] MEDS: CLONIDINE HCL 0.1 MG TABLET PO SCH ×3 (09:57→21:10)
[2017-02-11] MEDS: LORAZEPAM 1 MG TABLET PO SCH ×2 (09:57→21:10)
[2017-02-11] MEDS: CETIRIZINE HCL 10 MG TABLET PO SCH (09:57)
[2017-02-11] MEDS: THIAMINE HCL 100 MG TABLET PO SCH (09:58)
[2017-02-11] MEDS: FOLIC ACID 1 MG TABLET PO SCH (09:58)
[2017-02-11] MEDS: HCTZ PO SCH (09:58)
[2017-02-11] MEDS: VALSARTAN PO SCH (09:58)
[2017-02-11] MEDS ORDERED: POTASSIUM CHLORIDE 20 MEQ TAB.PRT.SR PO ONE (10:00)
[2017-02-11 12:00] VITALS: BP 136/92
--- NOTE | 2017-02-11 14:00 | NUR ---
MD Communication: Reported to MD, patient with episodes of desaturation on RA. O2 sat at 94% with RA. Notified Dr. Campbell. New orders obtained for patient to be on O2 at 2l/min via NC. Orders noted. Patient was informed.
--- NOTE | 2017-02-11 15:12 | NUR ---
Order clarification: Order clarification obtained from Dr. Marrufo (psych) for Remeron to be given at 2100 instead of 1800. Telephone order obtained. Orders noted and carried out.
[2017-02-11 16:00] VITALS: BP 120/76
[2017-02-11] MEDS: MONTELUKAST SODIUM 10 MG TABLET PO SCH (17:10)
--- NOTE | 2017-02-11 19:03 | NUR ---
End of Shift Notes Patient is a 46 year old male admitted for ETOH dependence who was placed on a 5-day Ativan taper as ordered. No adverse reactions noted. Patient is tolerating taper well. 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 FULL CODE. Regular diet. Allergic to asparagus, nuts, cauliflowers, potatoes, banana and citrus fruits. Prior to admission, patient was using 1 gallon of Vodka x 3 years. VS monitored q 4 hours. No significant abnormalities noted. Withdrawal symptoms were closely monitored. O2 at 2l/min via NC. No SOB noted. Patient presented with tremors and anxiety. Initial CIWA 6, Last CIWA 3. Per patient, Ativan has been helping him with his withdrawal symptoms. Patient stayed in his room for most of the day despite encouragement from staff. Compliant with care and treatment. All needs met and attended.
[2017-02-11 20:00] VITALS: BP 159/107
--- NOTE | 2017-02-11 20:00 | NUR ---
START OF SHIFT Received report from day shift nurse. Pt attended a group meeting and returned to his room after. He is a 46 yo male admitted to [facility] on 02/06 for ETOH dependence. He is A&O x4 and ambulatory. Allergies to citrus, apples, asparagus, banana, cauliflower, nuts and potato. He has a PMH of asthma, HTN, hypercholesteremia, colitis, diverticulosis, alcoholic hepatitis, renal failure x5, pancreatitis x5, depression, anxiety, and suicide attempt x2. Pt denies SI/HI. He started a 5 day Ativan taper on 02/07. He denies SOB. Pt reports "Im always anxious" and has hand tremors. He has been compliant with treatment. Fall and seizure precautions in place. Bed is down with call light in reach.
[2017-02-11] MEDS ORDERED: MIRTAZAPINE 15 MG TABLET PO SCH (21:00)
[2017-02-11] MEDS: IBUPROFEN 400 MG TABLET PO PRN (21:10)
--- NOTE | 2017-02-11 21:10 | NUR ---
PRN Motrin administration Pt c/o headache. PRN Motrin administered.
--- NOTE | 2017-02-11 22:10 | NUR ---
PRN Motrin reassessment PRN Motrin somewhat effective. Pt continues to have mild headache. He refuses any other medication.
[2017-02-11] MEDS ORDERED: NORTRIPTYLINE HCL 25 MG CAPSULE ONE (23:10)
[2017-02-11] MEDS: NORTRIPTYLINE HCL 25 MG CAPSULE PO SCH (23:15)
--- NOTE | 2017-02-11 23:15 | NUR ---
PRN Breathing treatment Pt c/o mild SOB. RT administered breathing treatment.
[2017-02-12] VITALS: BP 148/102
[2017-02-12] MEDS: TRAZODONE 100 MG TABLET PO PRN ×2 (00:46→21:49)
--- NOTE | 2017-02-12 00:52 | NUR ---
PRN Trazodone administration Pt c/o inability to sleep. PRN Trazodone administered per orders.
--- NOTE | 2017-02-12 07:15 | NUR ---
END OF SHIFT Report provided to day shift nurse. Pt is lying in bed resting. He is a 46 yo male admitted to [facility] on 02/06 for ETOH dependence. He is A&O x4 and ambulatory. Allergies to citrus, apples, asparagus, banana, cauliflower, nuts and potato. He has a PMH of asthma, HTN, hypercholesteremia, colitis, diverticulosis, alcoholic hepatitis, renal failure x5, pancreatitis x5, depression, anxiety, and suicide attempt x2. Pt denies SI/HI. He started a 5 day Ativan taper on 02/07. Pt had slightly elevated B/P. Dr Campbell aware. PRN Motrin, Trazodone, and breathing treatment administered. Pt. placed on Oxygen PRN via nasal cannula when in bed. Last CIWA was 4. He drank 1500mL and slept 4 hours. Fall and seizure precautions in place. Bed is down with call light in reach.
--- NOTE | 2017-02-12 07:20 | NUR ---
Start of Shift Notes: Received patient in his room. Awake, alert and verbally responsive. Able to make his needs known. Respirations even and unlabored. No complains of SOB noted. On O2 at 3l/min via NC. Skin warm and dry to touch. Abdomen soft and non-distended. No complains of N/V/D or constipation noted. Bladder non-distended. No complains of dysuria. Ambulatory ad bethel with steady gait. Patient is a 46 year old male admitted for ETOH dependence who was placed on a 5-day Ativan taper as ordered. No adverse reactions noted. Patient is tolerating taper well. 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 FULL CODE. Regular diet. Allergic to asparagus, nuts, cauliflowers, potatoes, banana and citrus fruits. Educated patient with his current plan of care for the day and his medication regimen. Encouraged oral fluid intake and encouraged group participation to learn new skills to prevent relapse. Will continue to monitor closely.
[2017-02-12] MEDS: PANTOPRAZOLE SODIUM 40 MG TABLET.DR PO SCH (07:49)
[2017-02-12 07:54] LABS: CALCIUM 9.3 mg/dL (8.5-10.1); MAGNESIUM 2.1 mg/dL (1.8-2.4); POTASSIUM 3.5 mmol/L (3.5-5.1)
[2017-02-12 08:00] VITALS: BP 135/81
[2017-02-12] MEDS: PATIENT MAY USE OWN MED- MD OK INH SCH ×3 (08:57→16:59)
[2017-02-12] MEDS: buPROPion XL 150 MG TAB.SR.24H PO SCH (09:00)
[2017-02-12] MEDS: MULTIVITAMINS,THERAPEUTIC TABLET PO SCH (09:00)
[2017-02-12] MEDS: THIAMINE HCL 100 MG TABLET PO SCH (09:01)
[2017-02-12] MEDS: VALSARTAN PO SCH (09:01)
[2017-02-12] MEDS: HCTZ PO SCH (09:01)
[2017-02-12] MEDS: AMLODIPINE 10 MG TABLET PO SCH (09:01)
[2017-02-12] MEDS: CLONIDINE HCL 0.1 MG TABLET PO SCH ×3 (09:01→21:32)
[2017-02-12] MEDS: FOLIC ACID 1 MG TABLET PO SCH (09:01)
[2017-02-12] MEDS: CETIRIZINE HCL 10 MG TABLET PO SCH (09:01)
[2017-02-12] MEDS: CHOLECALCIFEROL 1,000 UNIT TABLET PO SCH (09:01)
[2017-02-12] MEDS: ASPIRIN 81 MG TAB.CHEW PO SCH (09:01)
[2017-02-12 10:18] LABS: *BENZODIAZEPINES Negative (Cutoff=300)
[2017-02-12 12:00] VITALS: BP 137/91
[2017-02-12 16:00] VITALS: BP 136/82
[2017-02-12] MEDS: MONTELUKAST SODIUM 10 MG TABLET PO SCH (17:00)
--- NOTE | 2017-02-12 17:53 | NUR ---
MD Communication: Notified Dr. Campbell of patient's tremors, CIWA 4. Per MD, he will enter in orders. VS stable.
[2017-02-12 18:12] LABS: *AMPHETAMINE, URINE NEGATIVE (NEGATIVE); *BARBITURATE, URINE NEGATIVE (NEGATIVE); *CANNABINOID, URINE NEGATIVE (NEGATIVE); *COCCAINE, URINE NEGATIVE (NEGATIVE); *OPIATE, URINE NEGATIVE (NEGATIVE); *PHENCYCLIDINE SCREEN,URINE NEGATIVE (NEGATIVE)
--- NOTE | 2017-02-12 18:39 | NUR ---
End of Shift Notes Patient is a 46 year old male admitted for ETOH dependence who was placed on a 5-day Ativan taper as ordered. No adverse reactions noted. Patient is tolerating taper well. 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 FULL CODE. Regular diet. Allergic to asparagus, nuts, cauliflowers, potatoes, banana and citrus fruits. Prior to admission, patient was using 1 gallon of Vodka x 3 years. VS monitored q 4 hours. No significant abnormalities noted. Withdrawal symptoms were closely monitored. O2 at 2l/min via NC. No SOB noted. Patient presented with tremors and anxiety. Initial CIWA 4, Last CIWA 4. Notified Dr. Campbell of patients BUE tremors. New orders received and noted. Per patient, Ativan has been helping him with his withdrawal symptoms. Patient with discharge plans for tomorrow. UDS in and resulted. Patient stayed in his room for most of the day despite encouragement from staff. Compliant with care and treatment. All needs met and attended.
--- NOTE | 2017-02-12 19:15 | NUR ---
START OF SHIFT Received 46 year old male patient admitted on 02/06/17 for ETOH dependency. Pt is full code with allergy to asparagus, nuts, cauliflower, apples, potatoes, banana and all citrus fruits. He reports a PMHx of depression, anxiety, PTSD, suicide attempt x2 by overdose on meds and ETOH, asthma, HTN, hypercholesterolemia, colitis, diverticulosis, hepatitis, renal failure x5 and pancreatitis x5. Pt reports drinking Vodka 1 gallon daily for 3 years. Last dose was on 02/06/17. He was placed on 5 day Ativan taper started on 02/07/17 and tolerated well. Per endorsement, pt is scheduled to be DC tomorrow. He did not receive or request PRN medications. Pt is alert and oriented x4, breathing is even and unlabored, safety measures in place. Will continue to monitor.
[2017-02-12 20:00] VITALS: BP 147/96
[2017-02-12] MEDS ORDERED: MIRTAZAPINE 15 MG TABLET PO SCH (21:00)
[2017-02-12] MEDS ORDERED: AMLO10TA2 PO (21:31)
[2017-02-12] MEDS ORDERED: CLON0.1T14 PO (21:31)
[2017-02-12] MEDS ORDERED: CHOL10002 PO (21:31)
[2017-02-12] MEDS ORDERED: HYDR-3895 PO (21:31)
[2017-02-12] MEDS: NORTRIPTYLINE HCL 25 MG CAPSULE PO SCH (21:32)
--- NOTE | 2017-02-12 21:49 | NUR ---
PRN TRAZODONE Pt complains of inability to sleep. PRN Trazodone administered as ordered. Breathing even and unlabored, safety measures in place. Will monitor effectiveness.
--- NOTE | 2017-02-12 22:49 | NUR ---
PRN TRAZODONE REASSESSMENT Pt lying in bed with eyes closed noted to be asleep. Respirations 16, breathing is even and unlabored. Safety measures in place. Will continue to monitor.
--- NOTE | 2017-02-13 | NUR ---
VITALS 0000 vitals refused by pt at beginning of shift. Pt stated " If I'm sleeping, don't wake me." Pt lying in bed with eyes closed noted to be asleep. Respirations 16, breathing is even and unlabored, safety measures in place. Will continue to monitor. Addendum: 02/13/17 at 0107 by OLGA SMITH RN Amended: Links added.
[2017-02-13] MEDS: HYDROXYZINE PAMOATE 25 MG CAPSULE PO PRN (01:30)
[2017-02-13] MEDS: IBUPROFEN 400 MG TABLET PO PRN (01:39)
--- NOTE | 2017-02-13 01:39 | NUR ---
PRN MOTRIN/VISTARIL Pt complains of anxiety and headache 04/29. PRN Vistaril and Motrin administered as ordered. Breathing even and unlabored, safety measures in place. Will continue to monitor effectiveness of medications.
[2017-02-13 01:40] VITALS: BP 145/93
--- NOTE | 2017-02-13 02:39 | NUR ---
PRN MOTRIN/VISTARIL REASSESSMENT PRN medications effective. Pt lying in bed with eyes closed noted to be asleep. Respirations 16, breathing is even and unlabored. Pt safe with bed locked in lowest position, side rails up x2 and call light within reach. Will continue to monitor.
--- NOTE | 2017-02-13 04:00 | NUR ---
VITALS 0400 vitals refused by pt at beginning of shift. Pt stated " If I'm sleeping, don't wake me." Pt lying in bed with eyes closed noted to be asleep. Respirations 16, breathing is even and unlabored, safety measures in place. Will continue to monitor.
[2017-02-13] MEDS: PANTOPRAZOLE SODIUM 40 MG TABLET.DR PO SCH (06:57)
--- NOTE | 2017-02-13 07:19 | NUR ---
END OF SHIFT Pt is a 46 year old male patient admitted on 02/06/17 for ETOH dependency. Pt is full code with allergy to asparagus, nuts, cauliflower, apples, potatoes, banana and all citrus fruits. He reports a PMHx of depression, anxiety, PTSD, suicide attempt x2 by overdose on meds and ETOH, asthma, HTN, hypercholesteremia, colitis, diverticulosis, hepatitis, renal failure x5 and pancreatitis x5. Pt is scheduled to be DC today. He received PRN medication of trazodone, vistaril and motrin. He slept a total of 6 hrs, Intake: 1000mL, Void: x2, BM: x1, CIWA:4. Pt remains alert and oriented x4, breathing is even and unlabored, safety measures in place. Endorsed to AM shift.
[2017-02-13 08:00] VITALS: BP 129/84
--- NOTE | 2017-02-13 08:05 | NUR ---
START OF SHIFT: RECEIVED PT A/O X 4. HE PRESENTS WITH BLUNTED AFFECT AND SUBDUED MOOD. HE REPORTS FEELING BETTER AND STATES HE IS READY TO MOVE FORWARD WITH HIS RECOVERY. DISCHARGE PLANNING IN PROGRESS FOR LATER THIS AM. PT DENIES PAIN. ATIVAN TAPER COMPLETED. WILL CONTINUE TO MONITOR AND CONTINUE TO PROCEED WITH DISCHARGE PLANNING.
[2017-02-13] MEDS: PATIENT MAY USE OWN MED- MD OK INH SCH ×2 (08:43)
[2017-02-13] MEDS: MULTIVITAMINS,THERAPEUTIC TABLET PO SCH (08:43)
[2017-02-13] MEDS: HCTZ PO SCH (08:43)
[2017-02-13] MEDS: VALSARTAN PO SCH (08:43)
[2017-02-13] MEDS: THIAMINE HCL 100 MG TABLET PO SCH (08:44)
[2017-02-13] MEDS: AMLODIPINE 10 MG TABLET PO SCH (08:44)
[2017-02-13] MEDS: CETIRIZINE HCL 10 MG TABLET PO SCH (08:44)
[2017-02-13] MEDS: ASPIRIN 81 MG TAB.CHEW PO SCH (08:44)
[2017-02-13] MEDS: buPROPion XL 150 MG TAB.SR.24H PO SCH (08:44)
[2017-02-13 08:45] VITALS: BP 129/84
[2017-02-13] MEDS: CLONIDINE HCL 0.1 MG TABLET PO SCH (08:45)
[2017-02-13] MEDS: CHOLECALCIFEROL 1,000 UNIT TABLET PO SCH (08:45)
[2017-02-13] MEDS: FOLIC ACID 1 MG TABLET PO SCH (08:45)
--- NOTE | 2017-02-13 10:05 | NUR ---
DISCHARGE: PT A/O X 4. VS. WNL. HE DENIES S/I AND H/I. EDUCATED PT ON DISCHARGE INSTRUCTIONS AND MEDICATIONS. PT EXPRESSED VERBAL UNDERSTANDING OF EDUCATION. BELONGINGS RETURNED. TELECASTING ENGINEER ESCORTED PT TO [facility] WHERE HE WAS TRANSPORTED BY [facility] TO [facility] AT 0945.
== END 2017-02-13 09:45 | disposition home or self-care (01) | DRG 895 ==
LOC: SRC 02-06 18:32
PROVIDERS: ADMIT Internal Medicine; ATTEND Internal Medicine
PROC: HZ2ZZZZ Detoxification Services for Substance Abuse Treatment (ICD-10-PCS; principal; 2017-02-06)
PROC: HZ31ZZZ Individual Counseling for Substance Abuse Treatment, Behavioral (ICD-10-PCS; 2017-02-07)
PROC: HZ41ZZZ Group Counseling for Substance Abuse Treatment, Behavioral (ICD-10-PCS; 2017-02-10)
DX: F10.230 Alcohol dependence with withdrawal, uncomplicated (principal); F33.2 Major depressive disorder, recurrent severe without psychotic features; K29.20 Alcoholic gastritis without bleeding; Y90.9 Presence of alcohol in blood, level not specified; Z91.5 Personal history of self-harm; J45.40 Moderate persistent asthma, uncomplicated; G47.00 Insomnia, unspecified; Z82.49 Family history of ischemic heart disease and other diseases of the circulatory system; Z81.1 Family history of alcohol abuse and dependence; Z80.9 Family history of malignant neoplasm, unspecified; F41.0 Panic disorder [episodic paroxysmal anxiety]; E86.0 Dehydration; K70.10 Alcoholic hepatitis without ascites; E87.6 Hypokalemia; E83.42 Hypomagnesemia; F43.10 Post-traumatic stress disorder, unspecified; D53.9 Nutritional anemia, unspecified; E55.9 Vitamin D deficiency, unspecified; G47.33 Obstructive sleep apnea (adult) (pediatric); I10 Essential (primary) hypertension; E86.1 Hypovolemia
CPT/HCPCS: 36415; 70030-TC; 71010; 80307; 80346; 82306; 82746; 83690; 83735; 84100; 84443; 85025; 86580; 86592; 86705; 86803; 87340; 94640; 94664; C9113; G6040-TC; J2550; J3411; J3490; J3590; Q0162

== ENCOUNTER 2017-02-06 14:53 | Emergency (ER) | payer BC, OTHER ==
[~2017-02-06] VITALS: Ht 162.6 cm; Wt 60.8 kg
--- NOTE | 2017-02-06 15:36 | NUR ---
LIMITTED INFORMATION ON MED HX FROM PATIENT R/T CURRENT STATE OF INTOXICATION.
[2017-02-06 16:12] LABS: BASOPHILS # (AUTO) 0.1 K/uL (0.0-0.2); BASOPHILS % (AUTO) 1.3 % (0.0-2.0); EOSINOPHILS # (AUTO) 0.2 K/uL (0.0-0.7); EOSINOPHILS % (AUTO) 4.8 % (0.0-7.0); HEMATOCRIT 40.5 % (40.0-50.0); HEMOGLOBIN 13.9 g/dL (14.0-18.0); LYMPHOCYTES # (AUTO) 1.4 K/uL (0.8-4.8); LYMPHOCYTES % (AUTO) 29.3 % (20.5-51.5); MEAN CORPUSCULAR HEMOGLOBIN 33.9 uug (27.0-31.0); MEAN CORPUSCULAR HGB CONC 34 g/dL (32.0-37.0); MEAN CORPUSCULAR VOLUME 99.3 fL (82.0-92.0); MONOCYTES # (AUTO) 0.5 K/uL (0.1-1.30); MONOCYTES % (AUTO) 10.6 % (0.0-11.0); NEUTROPHILS # (AUTO) 2.7 K/uL (1.8-8.9); PLATELET COUNT (AUTO) 265 K/uL (150-450); RED BLOOD CELL COUNT(AUTO) 4.09 MIL/uL (4.70-6.10); RED CELL DISTRIBUTION WIDTH 15.9 % (11.5-14.5); WHITE BLOOD COUNT (AUTO) 4.9 K/uL (4.0-11.2)
[2017-02-06 16:23] LABS: CALCIUM 8.6 mg/dL (8.5-10.1); POTASSIUM 3.5 mmol/L (3.5-5.1)
[2017-02-06 16:30] LABS: ALBUMIN 3.9 g/dL (3.4-5.0); BILIRUBIN,DIRECT 0.2 mg/dL (0.0-0.2); BILIRUBIN,TOTAL 0.5 mg/dL (0.2-1.0); TOTAL PROTEIN, SERUM 7.7 g/dL (6.4-8.2)
--- NOTE | 2017-02-06 18:20 | NUR ---
Pt woke up, ambulated to the bathroom w/ assitance. A/O x 4, vss, nad noted at this time. Patient discharged from ED in stable conditon. Written and verbal after care instructions given. Patient verbalizes understanding of instructions. Pt picked up by [facility] staff.
[2017-02-06 18:24] VITALS: BP 132/96
[2017-02-06 18:30] LABS: *BILIRUBIN,URIN NEGATIVE (NEGATIVE); *BLOOD, URINE NEGATIVE (NEGATIVE); *CLARITY,URINE CLEAR (CLEAR); *COLOR,URINE YELLOW (YELLOW); *KETONES,URINE NEGATIVE (NEGATIVE); *PROTEIN,URINE TRACE (NEGATIVE); *UROBILINOGEN,URINE 0.2 E.U./dl (NORMAL); LEUKOCYTE ESTERASE ,URINE NEGATIVE (NEGATIVE); NITRITE, URINE NEGATIVE (NEGATIVE); PH,URINE 7.5 (5.0-8.0); UGLUCOSE NEGATIVE (NEGATIVE)
[2017-02-06 18:50] LABS: RBC,URINE 0-3 /HPF (0-3)
[2017-02-06 18:51] LABS: BACTERIA,URINE NONE SEEN /HPF (NONE SEEN); SQUAMOUS EPITHELIAL CELL,UR FEW /HPF (NONE SEEN); WBC,URINE NONE SEEN /HPF (0-3)
[2017-02-06 19:16] LABS: *AMPHETAMINE, URINE NEGATIVE (NEGATIVE); *BARBITURATE, URINE NEGATIVE (NEGATIVE); *CANNABINOID, URINE NEGATIVE (NEGATIVE); *COCCAINE, URINE NEGATIVE (NEGATIVE); *OPIATE, URINE NEGATIVE (NEGATIVE); *PHENCYCLIDINE SCREEN,URINE NEGATIVE (NEGATIVE)
[2017-02-06] MEDS ORDERED: LORA1TAB PO (19:59)
[2017-02-06] MEDS ORDERED: ALBU6.7H INH (20:36)
[2017-02-06] MEDS ORDERED: FOLI1TAB16 PO (20:36)
[2017-02-06] MEDS ORDERED: VALS1TAB73 PO (20:36)
[2017-02-06] MEDS ORDERED: SIMV40TA5 PO (20:36)
[2017-02-06] MEDS ORDERED: THIA100T70 PO (20:36)
[2017-02-06] MEDS ORDERED: FLUT1BLS4 IH (20:36)
[2017-02-06] MEDS ORDERED: BECL8.7A6 INH (20:36)
[2017-02-06] MEDS ORDERED: FAMO40TA7 PO (20:36)
[2017-02-06] MEDS ORDERED: ONDA8TAB13 PO (20:36)
[2017-02-06] MEDS ORDERED: TRAZ-147 PO (20:36)
[2017-02-06] MEDS ORDERED: NAPR220T24 PO (20:36)
[2017-02-06] MEDS ORDERED: MOME13HF INH (20:36)
[2017-02-06] MEDS ORDERED: MIRT30TA7 PO (20:36)
[2017-02-06] MEDS ORDERED: ASPI81TA31 PO (20:36)
[2017-02-06] MEDS ORDERED: PERM60CR4 TP (20:36)
[2017-02-06] MEDS ORDERED: BIOT5000 PO (20:36)
[2017-02-06] MEDS ORDERED: ALBU8.5H2 INH (20:36)
[2017-02-06] MEDS ORDERED: PRAS50CA PO (20:36)
[2017-02-06] MEDS ORDERED: CETI-231 PO (20:36)
[2017-02-06] MEDS ORDERED: CARB100T5 PO (20:36)
[2017-02-06] MEDS ORDERED: MONT10TA22 PO (20:36)
[2017-02-06] MEDS ORDERED: OMEG500C PO (20:36)
[2017-02-06] MEDS ORDERED: MAGN500C4 PO (20:36)
[2017-02-06] MEDS ORDERED: INOS500T PO (20:36)
[2017-02-06] MEDS ORDERED: NORT25CA PO (20:36)
[2017-02-06] MEDS ORDERED: OMEP40CA37 PO (20:36)
[2017-02-06] MEDS ORDERED: LMFO1TAB PO (20:36)
[2017-02-06] MEDS ORDERED: SODI1TAB PO (20:36)
[2017-02-06] MEDS ORDERED: EPIN0.3P3 IJ (20:36)
[2017-02-06] MEDS ORDERED: OXYM30SP3 NS (20:36)
[2017-02-06] MEDS ORDERED: GLUC1CAP30 PO (20:36)
[2017-02-06] MEDS ORDERED: VITA150T PO (20:36)
[2017-02-06] MEDS ORDERED: BUPR300T52 PO (20:36)
[2017-02-06] MEDS ORDERED: MOME17SP BNOSTRILS (20:36)
[2017-02-06] MEDS ORDERED: hydrocortisone 2.5% TP (20:36)
[2017-02-06] MEDS ORDERED: OMEG-11 PO (20:36)
[2017-02-06] MEDS ORDERED: CHLO25CA10 PO (20:36)
[2017-02-06] MEDS ORDERED: FENO43CA5 PO (20:36)
[2017-02-06] MEDS ORDERED: PROM12.511 PO (20:36)
[2017-02-06] MEDS ORDERED: POTA2TAB18 PO (20:36)
[2017-02-06] MEDS ORDERED: [UNRECOGNIZED DRUG - OTHER] PO (20:36)
[2017-02-06] MEDS ORDERED: CLON1PAT30 TD (20:36)
[2017-02-06] MEDS ORDERED: MELA3TAB PO (20:36)
[2017-02-06] MEDS ORDERED: ASPI1TAB PO (20:44)
[2017-02-06] MEDS ORDERED: OLOP2.5D5 OP (20:44)
[2017-02-06] MEDS ORDERED: METHYL PROTECT (20:44)
[2017-02-06] MEDS ORDERED: AID (20:44)
[2017-02-06] MEDS ORDERED: ASCO-382 PO (20:50)
[2017-02-06] MEDS ORDERED: CHOL100030 PO (20:50)
[2017-02-06] MEDS ORDERED: GLUC1500 PO (20:50)
[2017-02-06] MEDS ORDERED: FOLI-65 PO (20:50)
== END 2017-02-06 18:25 | disposition home or self-care (01) ==
LOC: ER 14:53
DX: F10.129 Alcohol abuse with intoxication, unspecified (principal); I10 Essential (primary) hypertension; J45.909 Unspecified asthma, uncomplicated; F32.9 Major depressive disorder, single episode, unspecified; Z79.82 Long term (current) use of aspirin; Z91.018 Allergy to other foods
CPT/HCPCS: 36415; 80307; 85025; A4663; G6040-TC